=== PATIENT | male | born 1945 | race Caucasian/White ===

== ENCOUNTER 2019-06-13 09:20 | Inpatient (IN) ==
[2019-06-13] MEDS ORDERED: levoFLOXacin 500 MG/100 ML 500 MG/100 ML BAG IVPB ONE (09:38)
[2019-06-13] MEDS ORDERED: *HR* OxyCODONE Immed Rel 5 MG TABLET PO PRN (09:54)
[2019-06-13] MEDS ORDERED: diazePAM 5 MG TABLET PO ONE (09:54)
[2019-06-13] MEDS ORDERED: *HR* HYDROmorphone (PF) 1 MG/ML SYRINGE IVP PRN (09:56)
[2019-06-13] MEDS ORDERED: *HR* Meperidine 25 MG/ML SYRINGE IVP PRN (09:56)
[2019-06-13] MEDS ORDERED: *HR* Promethazine 25 MG/ML VIAL IVP PRN (09:56)
[2019-06-13] MEDS ORDERED: Ringers Solution, Lactated 1,000 ML IVC SCH ×2 (10:00)
[2019-06-13] MEDS ORDERED: Acetaminophen IV 1,000 MG/100 ML INFUS..BTL IVPB ONE (10:05)
[2019-06-13] MEDS ORDERED: *HR* Rocuronium Bromide 50 MG/5 ML VIAL ONE (11:32)
[2019-06-13] MEDS ORDERED: Lidocaine -MPF 2% 2 ML VIAL ONE (11:32)
[2019-06-13] MEDS ORDERED: *HR* FentaNYL (PF) 100 MCG/2 ML VIAL ONE ×2 (12:03→13:28)
[2019-06-13] MEDS ORDERED: Lidocaine HCL 4 ML Topical Solution (Laryng-O-Jet Kit Sterile Pak) TP ONE (12:04)
[2019-06-13] MEDS ORDERED: Dexamethasone 4 MG/ML VIAL ONE (13:13)
[2019-06-13] MEDS ORDERED: *HR* HYDROMORPHONE 2 MG/ML VIAL ONE (13:43)
[2019-06-13] MEDS ORDERED: Neostigmine Methylsulfate 3 MG/3 ML SYRINGE ONE (17:00)
[2019-06-13] MEDS ORDERED: Acetaminophen 325 MG TABLET PO PRN (18:22)
[2019-06-13] MEDS ORDERED: Naloxone 0.4 MG/ML INJ IVP PRN (18:22)
[2019-06-13] MEDS ORDERED: Ondansetron 4 MG/2 ML VIAL IVP PRN (18:22)
[2019-06-13] MEDS: 0.9 % Sodium Chloride 1,000 ML IVC SCH (20:03)
[2019-06-13] MEDS: *HR* Heparin 5,000 UNIT/ML VIAL SQ SCH (20:03)
[2019-06-13] MEDS: *HR* OxyCODONE Immed Rel 5 MG TABLET PO PRN (23:50)
[2019-06-14] MEDS: 0.9 % Sodium Chloride 1,000 ML IVC SCH (05:08)
[2019-06-14] MEDS: *HR* Heparin 5,000 UNIT/ML VIAL SQ SCH ×2 (05:08→17:14)
[2019-06-14 05:21] LABS: Hematocrit 42.3 % (37.5-50.1); Hemoglobin 14.5 g/dL (12.9-16.9); Mean Corpuscular HGB Conc 34.3 g/dL (31.6-35.5); Mean Corpuscular Hemoglobin 30.5 pg (28.0-33.3); Mean Corpuscular Volume 88.9 fL (83.0-100.0); Mean Platelet Volume 11.7 fL (9.4-12.4); Platelet Count 192 K/mcL (140-400); Red Blood Count 4.76 M/mcL (4.19-5.50); Red Cell Distribution Width 13.1 % (11.5-14.5); White Blood Count 8.9 K/mcL (4.3-11.1)
[2019-06-14 05:43] LABS: BUN/Creatinine Ratio 22 (6-26); Blood Urea Nitrogen 17 mg/dL (8-23); Calcium 8.5 mg/dL (8.6-10.3); Carbon Dioxide 21 mEq/L (23-29); Chloride 109 mEq/L (98-107); Glucose 114 mg/dL (70-105); Osmolality,Calculated 292 (280-300); Potassium 4.1 mEq/L (3.5-5.1); Sodium 140 mEq/L (136-145); eGFR For African Americans > 60 (> 60); eGFR For Non-African Americans > 60 (> 60)
[2019-06-14] MEDS: *HR* OxyCODONE Immed Rel 5 MG TABLET PO PRN ×2 (10:09→17:13)
[2019-06-14] MEDS ORDERED: Bisacodyl 10 MG RECTAL SUPPOSITORY RC ONE (14:01)
[2019-06-15] MEDS: *HR* Heparin 5,000 UNIT/ML VIAL SQ SCH (06:14)
[2019-06-15] MEDS: *HR* OxyCODONE Immed Rel 5 MG TABLET PO PRN (06:20)
[2019-06-15 07:23] VITALS: BP 162/81
== END 2019-06-15 10:33 | disposition home or self-care (01) | DRG 708 ==
LOC: SAMDAY 09:20 → 3ANU 18:20
PROVIDERS: ADMIT Urology; ATTEND Urology

== ENCOUNTER 2019-06-24 10:05 | Inpatient (IN) ==
[2019-06-24] MEDS ORDERED: Ondansetron 4 MG/2 ML VIAL IVP PRN (10:43)
[2019-06-24] MEDS ORDERED: *HR* HYDROcodone/Acet 5/325 mg TABLET PO PRN (10:43)
[2019-06-24] MEDS ORDERED: Acetaminophen 325 MG TABLET PO PRN (10:43)
[2019-06-24] MEDS ORDERED: Naloxone 0.4 MG/ML INJ IVP PRN (10:43)
[2019-06-24 11:10] LABS: Basophils % 0.2 %; Eosinophils # 0.1 K/mcL (0.0-0.6); Hematocrit 37.8 % (37.5-50.1); Hemoglobin 13.1 g/dL (12.9-16.9); Immature Granulocytes % 0.7 % (0-4); Lymphocytes # 0.7 K/mcL (0.6-4.6); Lymphocytes % 5.1 %; Mean Corpuscular HGB Conc 34.7 g/dL (31.6-35.5); Mean Corpuscular Hemoglobin 30.8 pg (28.0-33.3); Mean Corpuscular Volume 88.7 fL (83.0-100.0); Mean Platelet Volume 10.6 fL (9.4-12.4); Monocytes % 7.3 %; Neutrophils # 11.6 K/mcL (1.6-8.9); Platelet Count 363 K/mcL (140-400); Red Blood Count 4.26 M/mcL (4.19-5.50); Red Cell Distribution Width 12.7 % (11.5-14.5); Segmented Neutrophils % 85.7 %; White Blood Count 13.5 K/mcL (4.3-11.1)
[2019-06-24 11:18] LABS: INR 3.3; Prothrombin Time 37.6 Seconds (9.4-12.1)
[2019-06-24 11:29] LABS: BUN/Creatinine Ratio 24 (6-26); Blood Urea Nitrogen 20 mg/dL (8-23); Calcium 8.8 mg/dL (8.6-10.3); Carbon Dioxide 23 mEq/L (23-29); Chloride 106 mEq/L (98-107); Glucose 143 mg/dL (70-105); Osmolality,Calculated 289 (280-300); Potassium 3.6 mEq/L (3.5-5.1); Sodium 137 mEq/L (136-145); eGFR For African Americans > 60 (> 60); eGFR For Non-African Americans > 60 (> 60)
[2019-06-24 11:32] LABS: Magnesium 2.1 mg/dL (1.6-2.6); Troponin I < 0.03 ng/mL (< 0.04)
--- NOTE | 2019-06-24 11:34 | Internal Med History&Physical ---
Date of Encounter: 06/24/19 Time of Encounter: 11:25 Internal Medicine - H&P: HPI Chief complaint: CP Admitted From: Emergency Dept History of present illness: Antelmo Brannon is a 74 M w hx PrCa s/p robotic prostatectomy 06/13, PE on Eliquis dx 06/21, CAD s/p CABG, HTN, HLD, who presents as direct admit from Oncology clinic for shortness of breath and chest pain. Patient was initially doing well following his prostatectomy, and 1 week later on 06/20 had his stapleton removed without issue. However, the following day he developed severe sharp R s houlder and chest pain, and came to the ED where CTPE showed b/l PE as well as multifocal infarction likely 2/2 PEs. He was started on Eliquis at that time. Initial discussion between myself, ED Dr Lott, and Uro Dr Diggs, was that patient had no signs of R heart strain including normal trop, CT without RV dilation or increase PA pressure, and bedside echo appropriate LV:RV ratio, and that patient's bleeding risk following robotic surgery 8 days later was low enough to merit close outpatient follow up. However, pt reports that he has continued to have CP requiring around the clock tylenol (taking 1000 mg q4h), and that he does get exertionally dyspneic. He also says that he can hear a gurg ling sound in his throat and chest when he lies down. Denies fevers, chills, cough, sputum production, hemoptysis, abd pain, N/V. In Onc clinic today, provider felt that he seemed a bit short of breath and given persistent and worsening symptoms he would benefit from observation in the hospital, with which I agree based on this additional history and concern. Past medical, surgical, social, and family histories reviewed and updated as below. Past Med Surg Social Fam HX - Past Medical History Medical history: coronary artery disease, hyperlipidemia, hypertension Additional medical history: ISCHEMIC HEART DISEASE, ANGINA, ELEVATED PSA Psychiatric history: no psych history - Past Surgical History Surgical History: coronary bypass (CABG) Additional surgical history: heart cath - colonoscopy. OPEN HEART SX, CARDIAC STENTS, APPPY COLONOSCOPY - Social History Smoking Status: Former smoker Smokeless Tobacco Status: No Alcohol use: occasionally Drug use: none - Family History Mother Hx Family Cardiac Disorders: Yes Internal Medicine - H&P: Meds Atorvastatin [Lipitor] 10 mg PO HS 07/24/16 [History] Aspirin [Adult Aspirin] 81 mg PO DAILY 05/05/19 [History] Tamsulosin [Flomax] 0.4 mg PO DAILY 06/13/19 [History] Ciprofloxacin HCl [Cipro] 500 mg PO ONCE #1 tablet 06/14/19 [Rx] Docusate [Colace] 100 mg PO BID #60 capsule 06/14/19 [Rx] OxyCODONE/APAP 5/325 [Percocet 5/325 MG] 1 each PO Q6HR PRN 5 Days #20 tablet 06/14/19 [Rx] Apixaban [Eliquis] 10 mg PO BID #60 tablet 06/21/19 [Rx] Morphine Sulfate Immed Rel [Morphine Sulfate] 15 - 30 mg PO Q4HR PRN 4 Days #20 tab 06/21/19 [Rx] Allergy/AdvReac Type Severity Reaction Status Date / Time penicillin V Allergy Hives Verified 05/29/19 09:11 All Systems PM: A 10-system review of systems was performed and is negative for pertinent findings except as documented above in the HPI. - Constitutional Vitals: Temp Pulse Resp BP Pulse Ox 98.3 F 81 14 134/81 95 06/24/19 10:59 06/24/19 10:59 06/24/19 10:59 06/24/19 10:59 06/24/19 10:59 Exam: General: NAD, good eye contact, well appearing Head: Atraumatic, normocephalic. Face symmetric Eyes: EOMI, sclerae anicteric ENT: Mucous membranes moist. Normal oral mucosa and dentition. Trachea midline. Thoracic: No visible chest wall deformities. Does have scattered rhonchi, most prominent at R base, but with egophony RUL and LLL Cardio: Normal S1 and S2, regular rate and rhythm, no murmurs. No JVD Abdomen: Soft, nontender, nondistended. Extremities: Warm, well perfused. DP pulses 2+ b/l. No clubbing, cyanosis. Does have minimally pitting edema b/l legs Skin: Intact. No rashes, bruises, or ulcers Neuro: Awake, fully oriented. Good memory, concentration, attention. Speech fluent. CN II-XII grossly intact. Strength 5/5 in b/l UE and LE Internal Med - H&P Results - Labs CBC & Chem 7: 06/24/19 10:54 06/24/19 10:54 Labs: Short CBC 06/24/19 Range/Units 10:54 WBC 13.5 H (4.3-11.1) K/mcL Hgb 13.1 (12.9-16.9) g/dL Hct 37.8 (37.5-50.1) % Plt Count 363 (140-400) K/mcL Neutrophils # 11.6 H (1.6-8.9) K/mcL - Summary of Assessment and Plan Summary of Assessment and Plan: Antelmo Brannon is a 74 M w hx PrCa s/p robotic prostatectomy 06/13, PE on Eliquis dx 06/21, CAD s/p CABG, HTN, HLD, who p/w CP and TEAN worsening since initial PE dx 3 days ago. Acute PE: persistently symptomatic, will need additional assessment for RH strain, and w infarcts seen on CT could have superimposed PNA - repeat BNP, trop - procal and lactate - ECG - TTE - Pulm consult - continue Eliquis 10 bid x4 more days PrCa s/p prostatectomy: home flomax CAD s/p CABG: home lipitor, ASA HTN: elevated 130-150s likely 2/2 pain PPx: eliquis Tele: yes Activity: up ad luis f FEN: cardiac, no MIVF Lines: PIV Consults: Pulm Code: Full Dispo: obs for symptomatic PE, anticipate 1-2 days, will be homegoing
[2019-06-24] MEDS: *HR* OxyCODONE Immed Rel 5 MG TABLET PO PRN ×2 (11:36→18:03)
[2019-06-24 12:37] LABS: Alanine Aminotransferase 53 Units/L (7-52); Albumin 3.4 g/dL (3.5-5.7); Alkaline Phosphatase 183 Units/L (34-104); Aspartate Amino Transferase 36 Units/L (13-39); Bilirubin,Direct 0.3 mg/dL (0.0-0.2); Bilirubin,Indirect 0.5 mg/dL (0.0-1.2); Bilirubin,Total 0.8 mg/dL (0.3-1.0); Globulin 3.4 g/dL (2.4-3.5); Total Protein 6.8 g/dL (6.4-8.9)
--- NOTE | 2019-06-24 14:06 | Pulmonology Consult Note ---
<Zuhair Edwards - Last Filed: 06/24/19 14:19> Date of Encounter: 06/24/19 Time of Encounter: 14:00 Assessment and Plan (1) Pulmonary embolism Current Visit: No Status: Acute Patient diagnosed with pulmonary embolism, bilateral on 06/21 CT revealed multifocal infarction secondary to this Started on Eliquis at that time Patient presents today for progressively worsening exertional dyspnea, diaphoresis, pleuritic type chest pain Troponins negative in the ED, BNP slightly elevated Bedside echo performed, no evidence of right heart failure at this time Patient does not have any history of COPD, asthma, tobacco abuse, occupational exposures Patient currently maintaining oxygen saturations greater than 92% on room air No evidence of concomitant pneumonia at this time, no sputum production, cough, fevers, chills Plan: -Continue Eliquis -Supplement O2 if needed to maintain SpO2 greater than 88% -Will order Doppler U/S LE for further evaluation -Add Xopenex as needed for shortness of breath -Will follow up with Echo Report Qualifiers: Pulmonary embolism type: other Chronicity: acute Acute cor pulmonale presence: without acute cor pulmonale Qualified Code(s): I26.99 - Other pulmonary embolism without acute cor pulmonale History of Present Illness Consult date: 06/24/19 Reason for consult: pulmonary embolism Chief complaint: Dyspnea History of present illness: Mr. Bain is a 74-year-old male with past history of coronary artery disease S/B CABG, hypertension, hyperlipidemia and prostate cancer status post robotic prostatectomy on 06/13 who was diagnosed with pulmonary embolism on 06/21. Pa tient was started on requests and discharged. In the oncology's office today patient was noticed to be significantly short of breath and complained of persistent pleuritic type chest pain. Patient was sent to the emergency department for further evaluation. In the emergency department, CTA chest 06/21 was reviewed which showed bilateral pulmonary embolism and multifocal infarctions secondary to that. Bedside echo was performed in the emergency department was negative for evidence of right heart strain. Patient denied hemoptysis, sputum production, fevers, chills, cough, nausea/vomiting, abdominal pain. Only complaint was exertional dyspnea, diaphoresis and intermittent right shoulder/pleuritic type chest pain. From a pulmonology standpoint, patient denies any history of tobacco abuse, COPD, asthma. 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 Patient denies any recent upper respiratory infections and denies an y sputum production or shortness of breath prior to his presentation for pulmonary embolism. Patient does state that prior to his prostatectomy he did have S/S of left lower leg thrombophlebitis and underwent a Doppler ultrasound of the lower extremities but was ultimately cleared for surgery. Patient was hemodynamically stable and admitted to the hospital for observation. Past Med Surg Social Fam HX - Past Medical History Medical history: coronary artery disease, hyperlipidemia, hypertension Additional medical history: ISCHEMIC HEART DISEASE, ANGINA, ELEVATED PSA Psychiatric history: no psych history - Past Surgical History Surgical History: coronary bypass (CABG) Additional surgical history: heart cath - colonoscopy. OPEN HEART SX, CARDIAC STENTS, APPPY COLONOSCOPY - Social History Smoking Status: Former smoker Smokeless Tobacco Status: No Alcohol use: occasionally Drug use: none - Family History Mother Hx Family Cardiac Disorders: Yes Medications and Allergies Atorvastatin [Lipitor] 10 mg PO HS 07/24/16 [History] Aspirin [Adult Aspirin] 81 mg PO DAILY 05/05/19 [History] Tamsulosin [Flomax] 0.4 mg PO DAILY 06/13/19 [History] Ciprofloxacin HCl [Cipro] 500 mg PO ONCE #1 tablet 06/14/19 [Rx] Docusate [Colace] 100 mg PO BID #60 capsule 06/14/19 [Rx] OxyCODONE/APAP 5/325 [Percocet 5/325 MG] 1 each PO Q6HR PRN 5 Days #20 tablet 06/14/19 [Rx] Apixaban [Eliquis] 10 mg PO BID #60 tablet 06/21/19 [Rx] Morphine Sulfate Immed Rel [Morphine Sulfate] 15 - 30 mg PO Q4HR PRN 4 Days #20 tab 06/21/19 [Rx] Allergy/AdvReac Type Severity Reaction Status Date / Time penicillin V Allergy Hives Verified 05/29/19 09:11 All Systems: The remainder of the systems were reviewed and are negative Physical Examination Vital Signs: Vital Signs, Last 4 Hours Temp Pulse Resp BP Pulse Ox 06/24/19 10:59 98.3 F 81 14 134/81 95 Gen.: Alert and oriented. Vital stable. No acute distress. Head: Atraumatic, normocephalic Eyes: Anicteric sclera, moist conjunctiva, EOMI ENT: Oropharynx clear, mucous membranes moist Neck: Trachea midline CV: No murmurs, gallops, rubs; regular rate and rhythm Respiratory: Occasional crackles appreciated by Basler, no evidence of wheezing, rhonchi. Normal inspiratory/expiratory effort, nonlabored breathing. Extremities: No rashes, cyanosis, clubbing. No evidence peripheral edema. Results - Laboratory Findings CBC and BMP: 06/24/19 10:54 06/24/19 10:54 PT/INR, D-dimer PT 37.6 Seconds (9.4-12.1) H 06/24/19 10:54 Abnormal lab findings: Abnormal lab results WBC 13.5 K/mcL (4.3-11.1) H 06/24/19 10:54 Neutrophils # 11.6 K/mcL (1.6-8.9) H 06/24/19 10:54 PT 37.6 Seconds (9.4-12.1) H 06/24/19 10:54 Glucose 143 mg/dL (70-105) H 06/24/19 10:54 Direct Bilirubin 0.3 mg/dL (0.0-0.2) H 06/24/19 10:54 ALT 53 Units/L (7-52) H 06/24/19 10:54 Alkaline Phosphatase 183 Units/L (34-104) H 06/24/19 10:54 B-Natriuretic Peptide 149 pg/mL (Less than 100) H 06/24/19 10:54 Albumin 3.4 g/dL (3.5-5.7) L 06/24/19 10:54 Albumin/Globulin Ratio 1.0 (1.1-2.2) L 06/24/19 10:54 Procalcitonin 0.68 ng/mL (0.00-0.15) H 06/24/19 10:54 - Clinical Findings Intake & Output: Intake & Output 06/23/19 06/24/19 06/24/19 23:59 07:59 15:59 Weight 99.8 kg Consult Discharge Plan - Plan Referrals: NONE,PCP [Primary Care Provider] - <Lorena Kaye - Last Filed: 06/24/19 16:40> Date of Encounter: 06/24/19 All Systems: The remainder of the systems were reviewed and are negative Physical Examination Vital Signs: Vital Signs, Last 4 Hours Temp Pulse Resp BP Pulse Ox 06/24/19 14:56 99.0 F 68 17 162/85 96 Results - Laboratory Findings CBC and BMP: 06/24/19 10:54 06/24/19 10:54 PT/INR, D-dimer PT 37.6 Seconds (9.4-12.1) H 06/24/19 10:54 Abnormal lab findings: Abnormal lab results WBC 13.5 K/mcL (4.3-11.1) H 06/24/19 10:54 Neutrophils # 11.6 K/mcL (1.6-8.9) H 06/24/19 10:54 PT 37.6 Seconds (9.4-12.1) H 06/24/19 10:54 Glucose 143 mg/dL (70-105) H 06/24/19 10:54 Direct Bilirubin 0.3 mg/dL (0.0-0.2) H 06/24/19 10:54 ALT 53 Units/L (7-52) H 06/24/19 10:54 Alkaline Phosphatase 183 Units/L (34-104) H 06/24/19 10:54 B-Natriuretic Peptide 149 pg/mL (Less than 100) H 06/24/19 10:54 Albumin 3.4 g/dL (3.5-5.7) L 06/24/19 10:54 Albumin/Globulin Ratio 1.0 (1.1-2.2) L 06/24/19 10:54 Procalcitonin 0.68 ng/mL (0.00-0.15) H 06/24/19 10:54 - Clinical Findings Intake & Output: Intake & Output 06/24/19 06/24/19 06/24/19 07:59 15:59 23:59 Weight 99.8 kg - Attending Attestation I examined this patient and my medical decision-making was reviewed with the Resident Physician. I agree with the documented findings, disposition and treatment plan as described except to the extent set forth below. Patient seen and examined. Labs, radiology, chart personally reviewed. 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 I have received a phone call from primary care earlier today regarding this patient and concern that he could have more complicated pulmonary embolism due to his symptoms and we both felt it will be better patient come in and be evaluated to be on the safe side. Explained to the patient in detail about pulmonary embolism and the fact troponin is normal with borderline BNP most likely there is no evidence of right heart strain, however distant to be confirmed by echocardiogram. Patient is on appropriate anticoagulation and I am hoping after the echocardiogram he would be able to be discharged home and he can be managed as outpatient. Cardiovascular: stable and Doppler of lower extremities Dispo: Hopefully patient will be discharged home after echocardiogram in next 1- 2 days Code: Full. Prognosis. Good
[2019-06-24] MEDS ORDERED: Levalbuterol Neb 0.63 MG/3 ML IH PRN (14:34)
[2019-06-24] MEDS: cefTRIAXone 2,000 MG in 0.9 % Sodium Chloride Mini Bag 100 ML IVPB SCH (14:51)
--- NOTE | 2019-06-24 16:34 | Event Note ---
Date of Encounter: 06/24/19 Time of Encounter: 16:32 Stopped by for social visit. He is having mild hematuria, but he reports that it clears with hydration. Urology will be available if needed. If a [place] catheter is deemed necessary, please contact urology to place the catheter.
[2019-06-24] MEDS ORDERED: Perflutren Lipid Microsphere 1.3 ML in 0.9 % Sodium Chloride 8.7 ML IVP ONE (20:22)
[2019-06-24] MEDS: Apixaban 5 MG TABLET PO SCH (21:20)
[2019-06-24] MEDS: Ibuprofen 400 MG TABLET PO PRN (21:20)
[2019-06-25] MEDS: *HR* OxyCODONE Immed Rel 5 MG TABLET PO PRN (01:32)
[2019-06-25 04:20] LABS: Hematocrit 34.5 % (37.5-50.1); Hemoglobin 11.6 g/dL (12.9-16.9); Mean Corpuscular HGB Conc 33.6 g/dL (31.6-35.5); Mean Corpuscular Hemoglobin 30.1 pg (28.0-33.3); Mean Corpuscular Volume 89.4 fL (83.0-100.0); Mean Platelet Volume 10.2 fL (9.4-12.4); Platelet Count 291 K/mcL (140-400); Red Blood Count 3.86 M/mcL (4.19-5.50); Red Cell Distribution Width 12.7 % (11.5-14.5); White Blood Count 10.2 K/mcL (4.3-11.1)
[2019-06-25 05:48] LABS: BUN/Creatinine Ratio 24 (6-26); Blood Urea Nitrogen 18 mg/dL (8-23); Calcium 8.5 mg/dL (8.6-10.3); Carbon Dioxide 20 mEq/L (23-29); Chloride 105 mEq/L (98-107); Glucose 104 mg/dL (70-105); Osmolality,Calculated 288 (280-300); Potassium 3.9 mEq/L (3.5-5.1); Sodium 138 mEq/L (136-145); eGFR For African Americans > 60 (> 60); eGFR For Non-African Americans > 60 (> 60)
[2019-06-25] MEDS: cefTRIAXone 2,000 MG in 0.9 % Sodium Chloride Mini Bag 100 ML IVPB SCH (07:27)
[2019-06-25] MEDS: Apixaban 5 MG TABLET PO SCH (07:27)
[2019-06-25] MEDS: Ibuprofen 400 MG TABLET PO PRN ×2 (07:34→13:24)
[2019-06-25] MEDS ORDERED: Aspirin Enteric Coated 81 MG Tablet PO SCH (09:00)
--- NOTE | 2019-06-25 09:52 | Pulmonology Progress Note ---
<Pete Kayelenka M - Last Filed: 06/25/19 15:59> Date of Encounter: 06/25/19 Objective PUL Vital signs: Last Vital Signs Temp 98.1 F 06/25/19 11:44 Pulse 69 06/25/19 11:44 Resp 16 06/25/19 11:44 BP 146/85 06/25/19 11:44 Pulse Ox 96 06/25/19 11:44 Results - Laboratory Findings CBC and BMP: 06/25/19 04:02 06/25/19 04:02 PT/INR, D-dimer PT 37.6 Seconds (9.4-12.1) H 06/24/19 10:54 Abnormal lab findings: Abnormal lab results WBC 13.5 K/mcL (4.3-11.1) H 06/24/19 10:54 RBC 3.86 M/mcL (4.19-5.50) L 06/25/19 04:02 Hgb 11.6 g/dL (12.9-16.9) L D 06/25/19 04:02 Hct 34.5 % (37.5-50.1) L 06/25/19 04:02 Neutrophils # 11.6 K/mcL (1.6-8.9) H 06/24/19 10:54 PT 37.6 Seconds (9.4-12.1) H 06/24/19 10:54 Carbon Dioxide 20 mEq/L (23-29) L 06/25/19 04:02 Glucose 143 mg/dL (70-105) H 06/24/19 10:54 Calcium 8.5 mg/dL (8.6-10.3) L 06/25/19 04:02 Direct Bilirubin 0.3 mg/dL (0.0-0.2) H 06/24/19 10:54 ALT 53 Units/L (7-52) H 06/24/19 10:54 Alkaline Phosphatase 183 Units/L (34-104) H 06/24/19 10:54 Troponin I 0.05 ng/mL (< 0.04) H* 06/25/19 04:02 B-Natriuretic Peptide 132 pg/mL (Less than 100) H 06/25/19 04:02 Albumin 3.4 g/dL (3.5-5.7) L 06/24/19 10:54 Albumin/Globulin Ratio 1.0 (1.1-2.2) L 06/24/19 10:54 Procalcitonin 0.68 ng/mL (0.00-0.15) H 06/24/19 10:54 - Clinical Findings Intake & Output: Intake & Output 06/24/19 06/25/19 06/25/19 23:59 07:59 15:59 Intake Total 400 / 500 360 / 360 Output Total 150 / 150 Balance 250 / 350 360 / 360 Consult Discharge Plan - Plan Instructions: Hydrocodone/Acetaminophen (By mouth), Levofloxacin (By mouth) Referrals: Rayna Sorto BOTTLE DEALER [Advanced Practice Nurse] - 07/03/19 9:00 am (Please follow up as schedule...) NONE,PCP [Primary Care Provider] - Prescriptions: levoFLOXacin [Levofloxacin] 750 mg PO DAILY 6 Days #6 tablet HYDROcodone/Acet 5/325 mg [[place] 5-325 mg] 1 tab PO Q6HR PRN 7 Days #10 tablet PRN Reason: Moderate Pain - Attending Attestation I examined this patient and my medical decision-making was reviewed with the Resident Physician. I agree with the documented findings, disposition and treatment plan as described except to the extent set forth below. Patient seen and examined. Labs, radiology, chart personally reviewed. Agree with resident's history and physical, assessment, plan with following comments: [employer]PLANE PILOT: Patient follows commands, Pulmonary: Acceptable oxygenation and ventilation and patient is feeling much better. Discussed with patient and also primary team that there is no evidence of right ventricular strain and continuation of anticoagulation is recommended for now. Even though infection is less likely and most likely this patient has pulmonary infarct, empiric treatment for 5 days with antibiotics is reasonable. Patient will follow-up with primary care to continue his anticoagulation which he will need minimum of 3 months. Thank you for consultation and answered all his questions. Cardiovascular: stable <Zuhair Edwards - Last Filed: 06/25/19 17:53> Date of Encounter: 06/25/19 Time of Encounter: 09:00 Assessment and Plan (1) Pulmonary embolism Status: Acute Patient diagnosed with pulmonary embolism, bilateral on 06/21 CT revealed multifocal infarction secondary to this Started on Eliquis at that time Patient presents today for progressively worsening exertional dyspnea, diaphoresis, pleuritic type chest pain Troponins negative in the ED, BNP slightly elevated Echo negative for Right Heart Strain Patient does not have any history of COPD, asthma, tobacco abuse, occupational exposures Patient currently maintaining oxygen saturations greater than 92% on room air No evidence of concomitant pneumonia at this time, no sputum production, cough, fevers, chills Plan: -Infection cannot be excluded even though likely related to PE, continue empiric ABX x 5days -Continue Eliquis, minimum 3 months, follow up with PCP -Supplement O2 if needed to maintain SpO2 greater than 88% -Add Xopenex as needed for shortness of breath -Follow up outpatient with PCP Qualifiers: Pulmonary embolism type: other Chronicity: acute Acute cor pulmonale presence: without acute cor pulmonale Qualified Code(s): I26.99 - Other pulmonary embolism without acute cor pulmonale Subjective Interval history: Patient seen and examined at bedside. Patient reports no new or additional complaints this time. Patient reports his breathing is about the same. Denies chest pain, fevers, cough, wheezing. Does continue to admit to some pleuritic type pain. Objective PUL Vital signs: Last Vital Signs Temp 97.9 F 06/25/19 07:00 Pulse 62 06/25/19 07:00 Resp 18 06/25/19 07:00 BP 170/82 06/25/19 07:00 Pulse Ox 96 06/25/19 07:00 Gen.: Alert and oriented. Vital stable. No acute distress. Head: Atraumatic, normocephalic Eyes: Anicteric sclera, moist conjunctiva, EOMI ENT: Oropharynx clear, mucous membranes moist Neck: Trachea midline CV: No murmurs, gallops, rubs; regular rate and rhythm Respiratory: Occasional crackles appreciated bibasilar, no evidence of wheezing, rhonchi. Normal inspiratory/expiratory effort, nonlabored breathing. Extremities: No rashes, cyanosis, clubbing. No evidence peripheral edema. Results - Laboratory Findings CBC and BMP: 06/25/19 04:02 06/25/19 04:02 PT/INR, D-dimer PT 37.6 Seconds (9.4-12.1) H 06/24/19 10:54 Abnormal lab findings: Abnormal lab results WBC 13.5 K/mcL (4.3-11.1) H 06/24/19 10:54 RBC 3.86 M/mcL (4.19-5.50) L 06/25/19 04:02 Hgb 11.6 g/dL (12.9-16.9) L D 06/25/19 04:02 Hct 34.5 % (37.5-50.1) L 06/25/19 04:02 Neutrophils # 11.6 K/mcL (1.6-8.9) H 06/24/19 10:54 PT 37.6 Seconds (9.4-12.1) H 06/24/19 10:54 Carbon Dioxide 20 mEq/L (23-29) L 06/25/19 04:02 Glucose 143 mg/dL (70-105) H 06/24/19 10:54 Calcium 8.5 mg/dL (8.6-10.3) L 06/25/19 04:02 Direct Bilirubin 0.3 mg/dL (0.0-0.2) H 06/24/19 10:54 ALT 53 Units/L (7-52) H 06/24/19 10:54 Alkaline Phosphatase 183 Units/L (34-104) H 06/24/19 10:54 Troponin I 0.05 ng/mL (< 0.04) H* 06/25/19 04:02 B-Natriuretic Peptide 132 pg/mL (Less than 100) H 06/25/19 04:02 Albumin 3.4 g/dL (3.5-5.7) L 06/24/19 10:54 Albumin/Globulin Ratio 1.0 (1.1-2.2) L 06/24/19 10:54 Procalcitonin 0.68 ng/mL (0.00-0.15) H 06/24/19 10:54 - Clinical Findings Intake & Output: Intake & Output 06/24/19 06/25/19 06/25/19 23:59 07:59 15:59 Intake Total 400 / 500 Output Total 150 / 150 Balance 250 / 350
--- NOTE | 2019-06-25 11:18 | Electrocardiograph Report ---
[place] [id number] Test Date: 2019-06-24 Pat Name: Antelmo Brannon Department: 112 Room: 2A Gender: M Micro Lab Analyst: : 1945 Requested By: Kevon Lara Order Number: [id number] Reading MD: Kurtis Aguilar Measurements Intervals [place] Rate: 71 P: 12 DC: 148 QRS: -1 QRSD: 140 T: 21 QT: 416 QTc: 439 Interpretive Statements SINUS RHYTHM RIGHT BUNDLE BRANCH BLOCK Electronically Signed On 06-25-2019 11:17:14 EDT by Kurtis Aguilar
[2019-06-25 11:47] VITALS: BP 146/85
--- NOTE | 2019-06-25 13:45 | Discharge Summary ---
Orders not resulted at time of discharge: Pending orders 06/25/19 08:14 Streptococcal pneumoniae urin antigen [S. Pneumoniae Antigen] [RM] Stat 06/25/19 09:44 Legionella Type 1 Antibody,IgM Stat Date of Encounter: 06/25/19 Time of Encounter: 13:43 - Discharge Diagnosis (1) Pneumonia Priority: Secondary Status: Suspected Qualifiers: Pneumonia type: due to unspecified organism Laterality: left Lung location: lower lobe of lung Qualified Code(s): J18.1 - Lobar pneumonia, unspecified organism (2) HLD (hyperlipidemia) Priority: Secondary Status: Chronic Qualifiers: Hyperlipidemia type: unspecified Qualified Code(s): E78.5 - Hyperlipidemia, unspecified (3) CAD (coronary artery disease) Priority: Secondary Status: Chronic Qualifiers: Coronary Disease-Associated Artery/Lesion type: unspecified vessel or lesion type [place] vs. transplanted heart: unspecified whether [place] or transplanted heart Associated angina: angina presence unspecified Qualified Code(s): I25.10 - Atherosclerotic heart disease of [place] coronary artery without angina pectoris (4) HTN (hypertension) Priority: Secondary Status: Chronic Qualifiers: Hypertension type: unspecified Qualified Code(s): I10 - Essential (primary) hypertension (5) Prostate cancer Priority: Secondary Status: Resolved (6) Pulmonary embolism Priority: Secondary Status: Acute Qualifiers: Pulmonary embolism type: other Chronicity: acute Acute cor pulmonale presence: without acute cor pulmonale Qualified Code(s): I26.99 - Other pulmonary embolism without acute cor pulmonale (7) DVT (deep venous thrombosis) Priority: Primary Status: Acute Qualifiers: DVT location: lower extremity Affected thrombotic vein of extremity: unspecified vein of extremity Chronicity: acute Laterality: left Qualified Code(s): I82.402 - Acute embolism and thrombosis of unspecified deep veins of left lower extremity Hospital course: Mr. Brannon is a 74 year old male hx PrCa s/p robotic prostatectomy 06/13, PE on Eliquis dx 06/21, CAD s/p CABG, HTN, HLD, who presents as direct admit from Oncology clinic for shortness of breath and chest pain. Patient admitted to the hospital due to shortness of breath, likely secondary to pain associated with the PE. TTE done: LFVE 65%, mild left ventricular diastolic dysfunction. No more right ventricular size and function. Patient was started empirically on Iv antibiotics due to CT findings concernig for possible pneumonia, and elevated procalcitonin. CT/CT angio chest IMPRESSION: Bilateral pulmonary artery emboli asymmetrically involving the right lower lobe. Multifocal bilateral consolidation right upper lobe, right lower lobe and left lower lobe potentially result of infection or lung infarct. Venous dupplex: Appears negative for DVT and SVT in right lower extremity. Appears positive for DVT and SVT in left lower extremity.Patient acute symptoms have resolved, patient is hemodynamically stable to be discharged home. - Time Spent with Patient Total time spent providing and/or coordinating discharge services: Time spent: Greater than 30 minutes (35) - Discharge Medications Prescriptions: New levoFLOXacin [Levofloxacin] 750 mg PO DAILY 6 Days #6 tablet HYDROcodone/Acet 5/325 mg [[place] 5-325 mg] 1 tab PO Q6HR PRN 7 Days #10 tablet PRN Reason: Moderate Pain Continued Atorvastatin [Lipitor] 10 mg PO HS Aspirin [Adult Aspirin] 81 mg PO DAILY Apixaban [Eliquis] 10 mg PO BID #60 tablet Home Medications: Atorvastatin [Lipitor] 10 mg PO HS 07/24/16 [History] Aspirin [Adult Aspirin] 81 mg PO DAILY 05/05/19 [History] Apixaban [Eliquis] 10 mg PO BID #60 tablet 06/21/19 [Rx] HYDROcodone/Acet 5/325 mg [[place] 5-325 mg] 1 tab PO Q6HR PRN 7 Days #10 tablet 06/25/19 [Rx] levoFLOXacin [Levofloxacin] 750 mg PO DAILY 6 Days #6 tablet 06/25/19 [Rx] Allergies/Adverse Reactions: Allergy/AdvReac Type Severity Reaction Status Date / Time penicillin V Allergy Hives Verified 06/24/19 19:37 Date of admission: 06/25/19 08:59 Primary care physician: PCP NONE Consults: 06/24/19 10:41 Consult to Pulmonology [CONS] Routine Consulting Provider: [facility] Reason for Consult: PE w dyspnea Call Completed: Yes - Constitutional Vitals: Temp Pulse Resp BP Pulse Ox 98.1 F 69 16 146/85 96 06/25/19 11:44 06/25/19 11:44 06/25/19 11:44 06/25/19 11:44 06/25/19 11:44 Exam: Vitals: Reviewed General: Alert and oriented x4. In no distress Skin: Normal color, no rash, no lesions. HEENT: EOM, pupils equal, round and reactive. Cardiovascular: RRR, normal S1 & S2, no rubs, murmurs or gallops. Lungs: CTA b/l, no wheezes or crackles. Abdomen: Soft, non-tender, no rigidity. Extremities: No deformity, no edema or tenderness, no joint swelling or clubbing. Neurological: Normal cognition and motor skills. Rest of the physical exam is non contributory - Patient Status Disposition: Home, Self-Care Condition: Good Functional capacity at discharge: independent ambulation Overall status at discharge: patient is back to baseline - Discharge Instructions Follow Up With: NONE,PCP [Primary Care Provider] - - Diet and Activity Activity: resume usual activities as tolerated Diet: low salt diet
[2019-06-29] MEDS ORDERED: Apixaban 5 MG TABLET PO SCH (09:00)
== END 2019-06-25 15:11 | disposition home or self-care (01) | DRG 175 ==
LOC: 2ANU → SUATTDRO 10:38
PROVIDERS: ADMIT Internal Medicine; ATTEND Internal Medicine